=== PATIENT | female | born 1955 | race Caucasian/White ===

== ENCOUNTER 2016-07-16 11:12 | Outpatient (CLI) | payer OTHER ==
--- NOTE | 2016-07-16 13:53 | DIAGNOSTIC IMAGING REPORT ---
PROCEDURE: CT THORAX ABD PELVIS W/CONT INDICATION: PANCREATIC CA, follow-up TECHNIQUE: 100 ml of Isovue 300 injected intravenously and axial images were obtained of the entire thorax, abdomen, and pelvis with sagittal and coronal reformations. COMPARISON: CT chest/abdomen/pelvis 04/04/2016 and 01/19/2016. FINDINGS: THORAX: Lungs are clear. No adenopathy or effusion. Mild atherosclerosis of the aorta. Bones are unremarkable. Heart size is normal. ABDOMEN: Stable biliary stent in place with stable mild intrahepatic ductal dilation. Dilated pancreatic duct measures a 6.5 mm, unchanged. Low density soft tissue around the SMA is unchanged. There is stenosis at the junction of the portal , splenic and superior mesenteric veins but there is no occlusion. Upper abdominal varices are again visualized. Gallbladder, spleen, adrenal glands and left kidney are unremarkable. Stable nonobstructing right renal calculus. Mild atherosclerosis of the aorta. Moderate dextroconvex thoracolumbar spine scoliosis. PELVIS: Slightly improved small ascites. Uterus, adnexa and bladder are unremarkable. There is no pelvic mass. No suspicious osseous lesions. IMPRESSION: 1. Improved small ascites 2. Biliary stent in place with stable mild intrahepatic ductal dilation 3. Stable pancreatic mass around the SMA with stenosis at the junction of the portal, splenic and superior mesenteric veins 4. Small upper abdominal varices All CT scans at this facility use dose modulation, iterative reconstruction, and/or weight-based dosing when appropriate to reduce radiation dose to as low as reasonably achievable.
== END 2016-07-16 23:00 ==
LOC: CT SRH 11:12 → LAB SRH 11:12 → CT SRH 12:00
DX: C25.9 Malignant neoplasm of pancreas, unspecified (principal)
CPT/HCPCS: 90074; 90100; 90287; 93005; 95059

== ENCOUNTER 2016-10-05 12:12 | Outpatient (CLI) | payer OTHER ==
--- NOTE | 2016-10-05 16:42 | DIAGNOSTIC IMAGING REPORT ---
PROCEDURE: CT HEAD WITHOUT CONTRAST INDICATION: DIZZINESS, PANCREATIC CA TECHNIQUE: Axial CT images were acquired through the head. Coronal and sagittal reformations were created. Contrast was not given secondary to low GFR. COMPARISON: None. FINDINGS: No intracranial hemorrhage or extraaxial fluid collections. Ventricles are normal in size, shape and position. There is no mass, mass effect or midline shift. The link-white matter differentiation is normal. There is no edema. The calvarium is intact. The paranasal sinuses and mastoid air cells are normally aerated. The extracranial soft tissues and orbits are normal. IMPRESSION: 1. No CT evidence of acute intracranial process. All CT scans at this facility use dose modulation, iterative reconstruction, and/or weight-based dosing when appropriate to reduce radiation dose to as low as reasonably achievable.
--- NOTE | 2016-10-05 16:57 | DIAGNOSTIC IMAGING REPORT ---
PROCEDURE: CT ABDOMEN/PELVIS W/O CONTRAST INDICATION: DIZZINESS, PANCREATIC CA TECHNIQUE: Axial CT images were obtained through the abdomen and pelvis without IV contrast. Coronal and sagittal reformations were created. Contrast was not given secondary to low GFR (37). COMPARISON: 07/16/2016 FINDINGS: Clear lung bases. Normal size heart. No hiatal hernia. An internal biliary stent is in stable position. 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 Pancreatic ductal dilatation is seen. Margins of the pancreatic mass are not delineated without intravenous contrast. The spleen is enlarged measuring about 13.7 cm, stable. Multiple nonobstructing calcifications in the lower pole of the right kidney, the largest measuring 6 mm. The unenhanced appearance of the liver, left kidney, adrenal glands, abdominal aorta, inferior vena cava, decompressed gallbladder are normal. Normal small bowel loops and mesentery. Enteric contrast is present in small and large bowel loops. Increased amount of retained stool throughout the colon and rectum. Moderate rightward curvature of the thoracolumbar spine with large lateral bridging osteophyte at the L1-2 level. Normal uterus and urinary bladder. Trace amount of perirectal fluid. No bulky adenopathy. IMPRESSION: 1. Suboptimal visualization of pancreatic mass without intravenous contrast. The patient was not administered contrast secondary to low GFR. 2. Stable biliary stent. 3. Extrinsic mass effect of the gastric antrum from the dorsal sided varicosities. These may contribute to partial gastric outlet obstruction. Enteric contrast was present in distal bowel loops. 4. Multiple nonobstructing right intrarenal calculi. 5. Increased amount of retained stool. 6. Trace amount of pelvic ascites, decreased compared to the prior study. All CT scans at this facility use dose modulation, iterative reconstruction, and/or weight-based dosing when appropriate to reduce radiation dose to as low as reasonably achievable.
== END 2016-10-05 23:00 ==
LOC: CT SRH 12:12
DX: C25.9 Malignant neoplasm of pancreas, unspecified (principal); R42 Dizziness and giddiness
CPT/HCPCS: 90074; 90100; 90287; 93005; 95059